=== PATIENT | female | born 1985 | race Caucasian/White ===

== ENCOUNTER 2020-01-08 13:33 | Outpatient (CLI) | payer OTHER, SELFPAY ==
--- NOTE | 2020-01-08 13:42 | US_ITS ---
WS: [id number] OB ultrasound, 01/08/2020 Clinical Data: DATING/SUPERVISION OF NORMAL Comparison: None. Findings: There is a single interuterine . heart rate is 189 beats per minute. There is a yolk sac present. The crown-rump length measured 2.92 cm. The estimated gestational age 9 weeks 5 days is with an ADDIE of approximately 08/07/2020. The left ovary measured 2.21 cm x 2.84 cm x 3.86 cm. The right ovary measured 2.27 cm x 3.36 cm. No ovarian cyst or masses are seen. US/US OB <= 14 weeks fetus [id number] Impression: 1. Single interuterine . 2. Estimated gestational age of 9 weeks 5 days with an ADDIE of 08/07/2020. 3. heart rate 189 beats per minute.
== END 2020-01-08 13:34 | disposition home or self-care (01) ==
LOC: US 13:39
PROVIDERS: Family Provider Family Medicine; PCP Family Medicine; Visit Provider Family Medicine
DX: Z34.81 Encounter for supervision of other normal pregnancy, first trimester (principal)
CPT/HCPCS: 76801

== ENCOUNTER 2020-03-14 10:12 | Outpatient (CLI) | payer OTHER, SELFPAY ==
--- NOTE | 2020-03-14 10:24 | US_ITS ---
WS: [id number] OBSTETRICAL ULTRASOUND COMPLETE HISTORY: ANATOMY COMPARISON: 01/08/2020 Single intrauterine gestation in Cephalic presentation. Cervix is Closed and normal length. Cervical length is 4.7 cm. Normal amount of amniotic fluid surrounds the fetus. Placenta: Anterior, no previa or abruption. Small cystic areas consistent with lakes along the subch orionic plate. Largest subchorionic plate cystic area measures 2.2 x 1.8 cm. Placenta grade 0 Heart: 164 BPM. Four chambers are identified. Anatomy: Intracranial structures and spine are normal. kidneys, stomach and urinary bladd er are unremarkable. Abdominal wall, three-vessel cord and cord insertion site are normal. 4 extremities are present. profile: Unremarkable. Gender: Male. measurements: BPD = 4.7 cm = 20w2d HC = 17.4 cm = 19w6d AC = 14.2 cm = 19w4d FL = 3.1 cm = 19w4d EFW: 302 g., Measurements are internally concordant. Appropriate growth since the first trimester ultrasound. AGA by ultrasound: 19w6d ADDIE by ultrasound: 08/02/2020 US/US OB >= 14 weeks fetus [id number] IMPRESSION: 1. Single intrauterine gestation of 19w6d with an ADDIE of 08/02/2020. 2. Unremarkable screening survey of anatomy. 3. Small subchorionic plate lakes. Suggest late second trimester or early thir d trimester reevaluation to be sure these are not significantly enlarged as thi s could place the fetus at risk for IUGR.
== END 2020-03-14 10:13 | disposition home or self-care (01) ==
LOC: RAD 10:15
PROVIDERS: PCP Family Medicine; Visit Provider Family Medicine
DX: Z36.89 Encounter for other specified antenatal screening (principal); Z3A.19 19 weeks gestation of pregnancy
CPT/HCPCS: 76805

== ENCOUNTER 2020-05-06 06:38 | Outpatient (CLI) | payer OTHER, SELFPAY ==
--- NOTE | 2020-05-06 | US_ITS ---
WS: [id number] ULTRASOUND OB FOCUSED HISTORY: PLACENTA LAKES COMPARISON: 03/14/2020 and 01/08/2020 Fetus in cephalic presentation. Cervix is closed at 3.3 cm. Normal amount of amniotic fluid. heart rate at 144 BPM. Placenta: Anterior with no previa or abruption. Again noted are the placental lakes in the chorionic plate. The largest Quintana measures 5.8 x 1.7 x 3.1 cm. There are additional smaller lakes scattered thr oughout. Placental lakes have slightly increased in size. Placenta is grade 2 otherwise. US/[place] [id number] IMPRESSION: 1. Subchorionic placental lakes of slightly increased in size since 03/14/2020. 2. Grade 2 placenta.
[2020-05-06 07:00] VITALS: BP 125/74; PULSE 84; RESP 18; TEMP 36.4; O2SAT 100; BMI 25.0
[2020-05-06 09:22] VITALS: BP 125/74; PULSE 84; RESP 18; TEMP 36.4; O2SAT 100
== END 2020-05-06 06:39 | disposition home or self-care (01) ==
PROVIDERS: PCP Family Medicine; Visit Provider Family Medicine
DX: O43.899 Other placental disorders, unspecified trimester (principal); Z3A.00 Weeks of gestation of pregnancy not specified
CPT/HCPCS: 36415; 76816; 86850; 86900; 90384; 96372

== ENCOUNTER 2020-08-07 02:00 | Inpatient (IN) | payer OTHER, SELFPAY ==
[2020-08-07] VITALS (30 sets, daily range): BP systolic 101–135; BP diastolic 62–81; PULSE 62–83; RESP 16–18; TEMP 36.4–37.9; O2SAT 95–100
[2020-08-07] MEDS: lactated ringers 1,000 ML 999 ML IV (02:30)
[2020-08-07 02:44] LABS: Basophils % 0.5 %; Eosinophils # 0.1 10^3/uL (0.0-0.8); Eosinophils % 0.9 %; Hematocrit 35.3 % (37.0-47.0); Lymphocytes # 2.9 10^3/uL (0.8-4.8); Lymphocytes % 32.5 %; Mean Corpuscular Hemoglobin 29.9 pg (28.0-34.0); Mean Platelet Volume 11.3 fL (7.4-10.4); Monocytes # 0.7 10^3/uL (0.2-0.9); Monocytes % 8.3 %; Neutrophils # 5.03 10^3/uL (1.8-7.7); Nucleated Red Blood Cells % 0 %; Platelet Count 172 10^3/cmm (130-400); Red Blood Count 4.01 10^6/uL (4.1-5.3); Red Cell Distribution Width 12.7 % (12.1-15.1); White Blood Count 8.8 10^3/uL (4.0-10.0)
[2020-08-07] MEDS: sodium chloride 0.9% 500 ML 999 ML IV (04:00)
[2020-08-07] MEDS: oxytocin 30 UNIT/500 ML BAG 600 UNIT IV (04:00)
--- NOTE | 2020-08-07 04:45 | P.HP_ITS ---
Providers/Chief Complaint Admitting Physician: Celestine Vigil MD Primary Care Provider: Celestine Vigil MD Chief Complaint: labor History of Present Illness Anita Perez is a 34 year old @ 40.0 weeks gestation by LMP consistent with 9 wk US. Her is complicated by history of abnormal pap smears, Rh negative, history of late hemorrhage/endometritis s/p transfusion of 2 units, placental lakes present, elevated 1-hr GTT with normal 3-hr GTT, GBS positive. The patient presented to labor and delivery shortly after 2 AM on 08/07/2020 after having significant contractions that woke her up out of her sleep. The patient was 4 cm upon arrival and shortly afterwards made rapid change to 8 cm dilation. Patient denies any fevers, cough, chest pains, shortness of breath, vaginal bleeding. Medications/Allergies Home Medications Medication Instructions Recorded Confirmed Last Taken Type 08/07/20 08/06/20 22:00 History Allergies Allergy/AdvReac Type Severity Reaction Status Date / Time No Known Allergies Allergy Verified 08/07/20 08:56 PFSH Acute PFSH: Medical History (Updated 08/08/20 @ 17:01 by Celestine Vigil MD) History of basal cell carcinoma History of blood transfusion Secondary hemorrhage Social History (Updated 08/08/20 @ 17:01 by Celestine Vigil MD) Smoking and tobacco status: never smoked Alcohol intake: never Substance/Drug Use: never Marital status: Physical Exam Narrative: EXAM NARRATIVE: General: Alert and oriented x3, in pain due to contractions Cardiac: Regular rate and rhythm without murmurs Lungs: Clear to auscultation bilaterally without wheezes, crackles or rhonchi Abdomen: Soft, non-tender, fundus consistent with gestational age Extremities: Trace edema in the bilateral lower extremities Data : 08/08/20 14:10 08/08/20 04:28 A&P Assessment and plan (1) Glucose tolerance test abnormal: Status: Acute (2) Positive GBS test: Status: Acute (3) Placenta, abnormal: Status: Acute (4) Rh negative status during : Status: Acute (5) Intrauterine : Status: Acute Additional A&P Information Anita Perez is a 34 year old @ 40.0 weeks gestation by LMP consistent with 9 wk US. Her is complicated by history of abnormal pap smears, Rh negative, history of late hemorrhage/endometritis s/p transfusion of 2 units, placental lakes present, elevated 1-hr GTT with normal 3-hr GTT, GBS positive. The patient is here and spontaneous labor. Upon arrival the patient was having significant contractions and was complete. Please see delivery note for full details and discussion. The patient did not have time to receive IV antibiotics for GBS prophylaxis due to her rapid delivery. Of note the patient had an elevated 1 hour glucose tolerance test with a normal 3-hour glucose tolerance test. Attestations Medical Necessity Statement*: The patient will be here for greater than 2 midnights due to intrapartum and management of labor and delivery. Coding Level of Care Code Acute Radio Message Router for [facility] Diagnoses Glucose tolerance test abnormal R73.09 Positive GBS test B95.1 Placenta, abnormal O43.109 Rh negative status during O26.899; Z67.91 Intrauterine Z34.90
--- NOTE | 2020-08-07 04:48 | PM.DELIVERY ---
Delivery Note: Date of delivery: August 07, 2020 Pre-delivery diagnoses: 1. Intrauterine at 40.0 weeks gestation 2. Rh- 3. History of late hemorrhage status post transfusion of 2 units of blood and early DIC 4. Placental lakes on ultrasound 5. Elevated 1 hour glucose tolerance test with normal 3-hour glucose tolerance test 6. GBS positive 7. Covid test negative on 07/28/2020 Post-delivery diagnoses: 1. Intrauterine status post spontaneous vaginal delivery at 40.0 weeks gestation 2. Rh- 3. History of late hemorrhage status post transfusion of 2 units of blood and early DIC 4. Placental lakes on ultrasound 5. Elevated 1 hour glucose tolerance test with normal 3-hour glucose tolerance test 6. GBS positive 7. Covid test negative on 07/28/2020 8. Delivery of healthy male weighing 8 pounds 7 ounces with Apgars of 8 and 9 9. 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 Status post attempted manual extraction of placenta 11. Status post emergent hysterectomy 12. hemorrhage Procedure: Spontaneous vaginal delivery Attempted manual extraction of placenta Emergent abdominal hysterectomy Op report anesthesia: General Delivering Physician: Celestine Vigil MD Estimated blood loss (mL): 2,000 Findings: 1. Delivery of healthy male with Apgars of 8 and 9 weighing 8 pounds 7 ounces 2. Retained placenta consistent with placenta accreta versus increta Pre-Delivery Course: The patient was scheduled for induction of labor at 6 AM on the morning of 08/07/2020. She presented to labor and delivery triage secondary to spontaneous labor on the morning of 08/07/2020 at approximately 2 AM. The patient's contractions had started approximately 1 hour before this. The patient made rapid change from 4cm to 8 cm in approximately 25 minutes. The patient was not able to have an epidural because of the rapid progression. She also did not receive IV antibiotics for GBS prophylaxis secondary to the rapid progression. The patient was noted to have an anterior lip at 2:41 AM on 08/07/2020. She was complete by my exam at 2:43 AM. Delivery: The patient began pushing at 2:43 AM. She pushed well and the delivered in the OA position at 3:00 AM on 08/07/2020. The right shoulder was the anterior shoulder and it delivered with downward pressure. The rest of the delivered without complication. There was no nuchal cord. The was crying immediately after delivery and the mouth and nose were bulb suctioned by myself. The infant was placed on the mother's chest where the nurses were waiting to care for him. The cord was clamped by myself after approximately 1 minute and cut by the 's father. Cord blood was obtained. The cord was then drained of blood and traction was placed on umbilical cord. The uterus was massaged. This was continued for the next 27 minutes. At 3:27 AM, a small portion of the placenta delivered attached to the umbilical cord. This constituted approximately 20% of the placenta. The patient then began to have significant bleeding. I spoke with the patient regarding the fact that she had a retained placenta and that we would need to attempt a manual extraction and that it would be better under general anesthesia due to her not having an epidural. I also discussed with her the possibility of a placenta accreta and the possible need for an emergent hysterectomy. We had discussed this previously as she had placental lakes on ultrasound and she had been sent to perinatology for further evaluation of this. They had stated that no further work-up needed to be done, but I did let her know that placenta accreta is not always seen on imaging. The patient agreed that if a hysterectomy was necessary that she was okay with this. Anesthesia and Dr. Hook were called emergently to assist due to these current and possible complications. The patient was taken back to the operating room emergently. On the way to the operating room she had significant bleeding in the bed that spilled over through the bed onto the floor. 2 units of crossmatched blood were ordered and 1 unit of emergent blood was ordered. 2 units of fresh frozen plasma were ordered and 1 unit of platelets as that was all that was available. 1L of warmed IV fluids were given while awaiting blood products. TXA was given. I again let the patient know that a hysterectomy would be possible and she again agreed to this procedure if necessary. Anesthesia was available right away and the patient was sedated. The patient was prepped and I attempted manual extraction of the placenta. A portion of the placenta was able to be from the left uterine wall, however I was not certain that it was appropriately and completely. There was also a very firm attachment to the fundus of the uterus that was approximately 3 to 4 cm in diameter. Even with significant steady pulling, it would not separate and with steady pressure would have led to an inverted uterus. Dr. Hook also attempted a manual extraction and had similar results. The patient continued to bleed heavily and for this reason it was decided that an emergent hysterectomy was necessary. The patient was given IV Pitocin until the hysterectomy could be completed. Please see Dr. Hook's note for further details of the surgery. I estimated that the patient lost approximately 1200 mL of blood prior to surgery. Dr. Hook documented 800 mL blood loss during the surgery. This would be a total estimation of approximately 2 L of blood loss. Post-Delivery Status: After delivery the patient was stable from a vital sign standpoint and ended up receiving 2 units of packed red blood cells and 1 unit of fresh frozen plasma. A DIC panel was done and showed signs of elevated D-dimer and borderline fibrinogen levels. Clinically the patient was continuing to improve well, so no further transfusions were given. The patient has been started on Zosyn for the next 24 hours to prevent any GI infection. This is due to the emergent need for hysterectomy and possible associated complications. Currently the patient is doing very well considering her acute blood loss. We will continue to watch her H&H and recheck a DIC panel to be sure that she is improving. We will provide pain control as needed. All questions from the patient and her were answered. Continue with close monitoring secondary to hemorrhage. A&P Assessment and plan (1) hemorrhage: Status: Acute (2) Retained placenta with hemorrhage: Status: Acute (3) S/P emergency hysterectomy: Status: Acute Coding Level of Care Code Acute Convertible Power Shovel Operator for [facility] Diagnoses hemorrhage O72.1 Retained placenta with hemorrhage O72.0 S/P emergency hysterectomy Z90.710
--- NOTE | 2020-08-07 05:50 | P.OP_ITS ---
Operative Report Date of procedure: August 07, 2020 Pre-op Diagnosis: hemorrhage, placenta accreta Post-op diagnosis: same Post-op Findings: prolapse uterus with placenta Procedure Done: Partial/Supracervical abdominal hysterectomy Specimens removed/disposition: uterus with placenta without cervix Pathology: uterus with placenta attached Surgeon: Andrew Hook M.D. Anesthesia: General Estimated blood loss (mL): 800 IV fluids (mL): 1,500 Urine output (mL): 100 Findings: enlarged uterus with placenta attached Condition: stable Disposition: observation Brief History: 33-year-old female status post spontaneous vaginal delivery. Called by primary provider after attempting to delivered the placenta for 28 minutes. Placenta cannot be detached from the uterus. Her main provider had taken the patient to the OR and under anesthesia attempted again to delivered the placenta but the placenta could not detached. I came to the OR room a try to remove the placenta the placenta will not shear off from the uterus. A placenta accreta was suspected. Counseled the patient's regarding the findings and the recommended hysterectomy to control the bleeding. The patient had been counseled by the primary provider of the possibility of a hysterectomy if the placenta would not be able to be delivered. Tranexamic and cytotec was ordered. Preoperative emergency blood transfusion given 2 units of PRBC, and 1 unit fresh frozen plasma. Procedure: After assuring informed consent, the patient was taken to the operating room and anesthesia was initiated. She was placed in the dorsal supine position with a left lateral tilt. The patient was given Ancef 2 gm intravenously immediately. The abdomen was prepped and draped in the usual virgilio rile manner. A time-out procedure was performed. A Pfannenstiel skin incision was made with the scalpel and carried through to the underlying layer of fascia with the Bovie. The fascia was nicked in the midline and the incision extended laterally with the Watts scissors. The superior aspect of the fascial incision was then grasped with Jacqueline clamps and elevated and the underlying rectus muscle dissected off bluntly and sharp with watts scissors. Attention was then turned to the inferior aspect of the incision which, in similar fashion, was grasped and tented up with Jacqueline clamps and the rectus muscle dissected bluntly. The rectus muscles were then in the midline and the peritoneum identified, tented up and entered sharply with Metzenbaum scissors. The peritoneal incision was then extended superiorly and inferiorly with good visualization of the bladder. The Omid O retractor was then inserted and the vesicouterine peritoneum identified, grasped with pickups and entered sharply with Metzenbaum scissors. The abdominal contents were packed superiorly away from the operative site using the lap packs. At this time, the pelvic organs were noted. This incision was then extended laterally and the bladder flap created digitally. The fundus of the uterus was then grasped with a wet lap towel and retracted out of the pelvic cavity into the abdominal site. At this point, Tram clamps were placed in both right and left adnexal regions. Subsequently, using the Voyant fusion device unit, the round ligaments were grasped, cauterized/sealed, and cut. Subsequently, the posterior leaf of the broad ligament was opened sharply and the Voyant fusion device unit was then placed below the level of the ovary in both the right and left side, care being taken not to damage bowel and the infundibulopelvic ligament was then grasped, cauterized/sealed, and cut. Further dissection of the broad ligament was carried down posteriorly towards the uterine vessels. The bladder was pushed inferiorly down towards the vagina. Subsequently, the uterine vessels were then grasped again with the Voyant fusion device, cauterized/seal, and cut. At these point the uterus was transected at the level oflower utrine segment performing a supracervical hysterectomy. The uterine stump incision was repaired with 0 Vicryl in a running-locked fashion. A second layer of the same suture was used to obtain excellent hemostasis. The gutters were cleared of all clots. After the good hemostasis had been achieved in the supracervical closure, both the right and left adnexa was visualized and no more bleeding was noted. The pelvis was copiously irrigated. The bladder was visualized and no bleeding was noted. The rectus muscles were approximated with 1-0 Vicryl. The fascia was reap proximated with 0 Vicryl in an midlocked running fashion. The skin was closed with Insorb?s subcuticular absorbable kerry. The patient tolerated the procedure well. The sponge, lap and needle counts were correct times three.
[2020-08-07] MEDS: morphine 4 mg/mL SDV 1 mL IVP ×3 (06:00→11:07)
[2020-08-07 06:09] LABS: Basophils # 0.1 10^3/uL (0.0-0.1); Basophils % 0.4 %; Eosinophils % 0.1 %; Hemoglobin 10.3 g/dL (11.5-15.3); Lymphocytes # 1.4 10^3/uL (0.8-4.8); Lymphocytes % 8.3 %; Mean Corpuscular HGB Conc 33.2 g/dL (30.0-36.0); Mean Corpuscular Hemoglobin 29.3 pg (28.0-34.0); Mean Corpuscular Volume 88.3 fL (81-99); Mean Platelet Volume 11.2 fL (7.4-10.4); Monocytes # 1.2 10^3/uL (0.2-0.9); Monocytes % 7.1 %; Neutrophils % 83.4 %; Nucleated Red Blood Cells % 0 %; Platelet Count 148 10^3/cmm (130-400); Red Blood Count 3.51 10^6/uL (4.1-5.3); Red Cell Distribution Width 13.7 % (12.1-15.1); White Blood Count 16.3 10^3/uL (4.0-10.0)
[2020-08-07] MEDS: ketorolac 30 mg/mL INJ IVP ×3 (07:30→22:20)
--- NOTE | 2020-08-07 09:17 | PC.NURSE ---
note This mom reports baby nursing well. She has no concerns. She nursed her now 22 month old for over a year.
[2020-08-07 09:23] LABS: Hemoglobin 9.6 g/dL (11.5-15.3)
[2020-08-07 09:27] LABS: INR 1.05 (0.8-1.2)
[2020-08-07 09:28] LABS: Fibrinogen 279 mg/dL (174-498); Partial Thromboplastin Time 29.4 SECONDS (23.9-36.7)
[2020-08-07 09:37] LABS: D Dimer 5.08 ug/mIFEU (0-0.59)
[2020-08-07] MEDS: dextrose 5%-lactated ringers 1,000 ML 125 ML IV (09:41)
[2020-08-07] MEDS: piperacillin-tazobactam 3.375 GM in sodium chloride 0.9% (plus) 50 ML IV ×2 (09:42→17:50)
[2020-08-07] MEDS: oxyCODONE-APAP 5-325 mg Tablet PO ×2 (14:14→20:36)
[2020-08-07 14:22] LABS: Hematocrit 26.8 % (37.0-47.0)
[2020-08-07] MEDS: lanolin oint 7 gm 1 APPLIC TOPICAL (15:50)
[2020-08-07 18:52] LABS: Hematocrit 26.1 % (37.0-47.0); Hemoglobin 8.9 g/dL (11.5-15.3); Mean Corpuscular HGB Conc 34.1 g/dL (30.0-36.0); Mean Corpuscular Hemoglobin 29.5 pg (28.0-34.0); Mean Corpuscular Volume 86.4 fL (81-99); Mean Platelet Volume 10.8 fL (7.4-10.4); Platelet Count 130 10^3/cmm (130-400); Red Blood Count 3.02 10^6/uL (4.1-5.3); Red Cell Distribution Width 14.7 % (12.1-15.1); White Blood Count 9.2 10^3/uL (4.0-10.0)
[2020-08-08] VITALS (9 sets, daily range): BP systolic 105–132; BP diastolic 66–90; PULSE 80–87; RESP 15–18; TEMP 36.7–36.8; O2SAT 96–98
[2020-08-08] MEDS: oxyCODONE-APAP 5-325 mg Tablet PO ×5 (01:27→20:07)
[2020-08-08] MEDS: piperacillin-tazobactam 3.375 GM in sodium chloride 0.9% (plus) 50 ML IV (01:29)
[2020-08-08 05:03] LABS: Basophils # 0.1 10^3/uL (0.0-0.1); Basophils % 0.6 %; Eosinophils # 0.1 10^3/uL (0.0-0.8); Eosinophils % 1.4 %; Hematocrit 24.1 % (37.0-47.0); Lymphocytes # 2.1 10^3/uL (0.8-4.8); Lymphocytes % 23.8 %; Mean Corpuscular HGB Conc 33.2 g/dL (30.0-36.0); Mean Corpuscular Hemoglobin 29.1 pg (28.0-34.0); Mean Corpuscular Volume 87.6 fL (81-99); Mean Platelet Volume 10.9 fL (7.4-10.4); Monocytes # 0.6 10^3/uL (0.2-0.9); Monocytes % 7.2 %; Neutrophils % 66.4 %; Nucleated Red Blood Cells % 0 %; Platelet Count 113 10^3/cmm (130-400); Red Blood Count 2.75 10^6/uL (4.1-5.3); White Blood Count 8.9 10^3/uL (4.0-10.0)
[2020-08-08 05:30] LABS: Alanine Aminotransferase 13 U/L (0-33); Albumin Level 2.7 g/dL (3.5-5.2); Alkaline Phosphatase 108 IU/L (35-105); Anion Gap 12.2 (5-19); Aspartate Amino Transferase 30 U/L (0-32); Blood Urea Nitrogen 10 mg/dL (6-20); Calcium 8.2 mg/dL (8.5-10.5); Carbon Dioxide 23 mmol/L (22-29); Chloride 105 mmol/L (98-107); Creatinine Clr Calc Pharmacy 0.2316; Glomerular Filtration Rate 72.1 mL/min (90-130); Glucose 88 mg/dL (65-115); Osmolality Calculated 280 mOsm/kg (285-295); Potassium 4.2 mmol/L (3.5-5.1); Sodium 136 mmol/L (136-145); Total Bilirubin 0.2 mg/dL (0.15-1.2); Total Protein 4.7 g/dL (6.6-8.7)
--- NOTE | 2020-08-08 08:29 | ANE.PACU2 ---
Inpatient post-anesthesia follow up: Airway intact: Yes Vital signs: Temperature 98.6 F Pulse Rate 80 Respiratory Rate 18 Blood Pressure 122/83 Pulse Oximetry 96 Oxygen Delivery Me thod Room Air Oxygen Flow Rate Fraction of Inspir ed Oxygen Hydration adequate: Yes Nausea and vomiting: No Pain level: 1 Mental status: Baseline
[2020-08-08] MEDS: docusate sodium 100 mg Capsule PO ×2 (08:30→17:42)
[2020-08-08] MEDS: ibuprofen 800 mg tablet PO ×3 (08:30→20:07)
[2020-08-08] MEDS: ferrous sulfate EC 325 mg Tablet PO ×2 (08:30→17:42)
[2020-08-08 14:43] LABS: Basophils # 0.1 10^3/uL (0.0-0.1); Basophils % 0.7 %; Eosinophils # 0.1 10^3/uL (0.0-0.8); Eosinophils % 1.2 %; Hematocrit 25.5 % (37.0-47.0); Hemoglobin 8.7 g/dL (11.5-15.3); Lymphocytes % 20.9 %; Mean Corpuscular HGB Conc 34.1 g/dL (30.0-36.0); Mean Corpuscular Hemoglobin 30.1 pg (28.0-34.0); Mean Corpuscular Volume 88.2 fL (81-99); Mean Platelet Volume 11.1 fL (7.4-10.4); Monocytes # 0.6 10^3/uL (0.2-0.9); Monocytes % 6.1 %; Neutrophils % 70.4 %; Nucleated Red Blood Cells % 0 %; Platelet Count 145 10^3/cmm (130-400); Red Blood Count 2.89 10^6/uL (4.1-5.3); Red Cell Distribution Width 14.9 % (12.1-15.1); White Blood Count 9.4 10^3/uL (4.0-10.0)
[2020-08-08 14:52] LABS: INR 0.98 (0.8-1.2)
[2020-08-08 14:53] LABS: Partial Thromboplastin Time 33.1 SECONDS (23.9-36.7)
[2020-08-08 14:54] LABS: Fibrinogen 330 mg/dL (174-498)
[2020-08-08 14:56] LABS: D Dimer 1.33 ug/mIFEU (0-0.59)
--- NOTE | 2020-08-08 17:47 | PM.PN ---
Subjective Subjective: Interval history: The patient is doing well today after having a spontaneous vaginal delivery followed by emergent hysterectomy secondary to placenta accreta versus increta leading to rapid hemorrhage. She is currently ambulating, voiding, passing gas and tolerating food by mouth. Her pain is well controlled. Vitals/I&O/Wt Last Vital Signs Temp 98.3 F 08/08/20 16:30 Pulse 87 08/08/20 16:30 Resp 18 08/08/20 16:45 BP 132/90 08/08/20 16:30 Pulse Ox 98 08/08/20 16:30 08/08/20 08/08/20 08/08/20 06:59 14:59 22:59 Intake Total 50 / 150 Balance 50 / -925 Weight last 48 hrs Weight 5.82 oz Physical Exam Narrative: EXAM NARRATIVE: General: Alert and oriented x3 Cardiac: Regular rate and rhythm without murmurs Lungs: Clear to auscultation bilaterally without wheezes, crackles or rhonchi Abdomen: Soft, mild tenderness over the incision. Incision is clean and dry without signs of infection or dehiscence Extremities: Trace edema in the bilateral lower extremities Urinary Catheter Management^: Simon: Cath Placed During This Visit: yes Urinary Catheter Date of Insertion: 08/07/20 Urinary Catheter Time of Insertion: 04:00 Data : 08/08/20 14:10 08/08/20 04:28 A&P Assessment and plan (1) hemorrhage: Status: Resolved (2) Retained placenta with hemorrhage: Status: Resolved (3) S/P emergency hysterectomy: Additional A&P Information Anita Perez is a 34 year old G2 now P2 status post spontaneous vaginal delivery @ 40.0 weeks gestation by LMP consistent with 9 wk US. Her is complicated by history of abnormal pap smears, Rh negative, history of late hemorrhage/endometritis s/p transfusion of 2 units, placental lakes present, elevated 1-hr GTT with normal 3-hr GTT, GBS positive, hemorrhage secondary to placenta accreta versus increta status post emergent hysterectomy. The patient seems to be doing well at this time. The patient received 2 units of packed red blood cells. Her blood count is 8.7. She received 2 units of packed red blood cells. We will recheck a DIC profile to be sure that it is improving as expected. Clinically she is doing very well. She is ambulating, voiding, passing gas and tolerating food by mouth. Her pain is well controlled. She has almost no bleeding. She seems to be doing okay overall regarding the need for emergent hysterectomy. All questions were answered. Plan for discharge home tomorrow as long as she continues to do well. Attestations Medical Necessity Statement*: The patient continues need inpatient care as we monitor her after hemorrhage with emergent hysterectomy. Her stay will cross 2 midnights. Coding Level of Care Code Acute Therapeutic Specialist for [facility] Diagnoses hemorrhage O72.1 Retained placenta with hemorrhage O72.0 S/P emergency hysterectomy Z90.710
[2020-08-09 02:59] VITALS: RESP 17
[2020-08-09] MEDS: oxyCODONE-APAP 5-325 mg Tablet PO ×2 (02:59→08:28)
[2020-08-09 03:56] VITALS: BP 118/69; PULSE 88; RESP 16; TEMP 36.8; O2SAT 95
[2020-08-09] MEDS: ibuprofen 800 mg tablet PO (08:27)
[2020-08-09 08:28] VITALS: RESP 18
[2020-08-09] MEDS: ferrous sulfate EC 325 mg Tablet PO (08:28)
[2020-08-09] MEDS: docusate sodium 100 mg Capsule PO (08:29)
[2020-08-09] MEDS: prenatal vitamin Capsule 1 CAP PO (08:29)
--- NOTE | 2020-08-09 11:23 | PM.DCS ---
Discharge Providers Date of Admission: 08/07/20 02:00 Date of Discharge: August 09, 2020 Attending Provider at Admission: Celestine Vigil MD Attending Provider at Discharge: Celestine Vigil MD Primary Care Provider: Celestine Vigil MD Diagnoses at Discharge Discharge Diagnosis (1) hemorrhage: Status: Resolved (2) Retained placenta with hemorrhage: Status: Resolved (3) S/P emergency hysterectomy: Other Information Additional DC diagnoses/information: 1. Intrauterine status post spontaneous vaginal delivery at 40.0 weeks gestation 2. Rh- 3. History of late hemorrhage status post transfusion of 2 units of blood and early DIC 4. Placental lakes on ultrasound 5. Elevated 1 hour glucose tolerance test with normal 3-hour glucose tolerance test 6. GBS positive 7. Covid test negative on 07/28/2020 8. Delivery of healthy male weighing 8 pounds 7 ounces with Apgars of 8 and 9 9. 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 Status post attempted manual extraction of placenta 11. Status post emergent hysterectomy 12. hemorrhage Procedure: Spontaneous vaginal delivery Reason for Visit Reason for Visit: labor Hospital Course Hospital Course: The patient was scheduled for induction of labor at 6 AM on the morning of 08/07/2020. She presented to labor and delivery triage secondary to spontaneous labor on the morning of 08/07/2020 at approximately 2 AM. The patient's contractions had started approximately 1 hour before this. The patient made rapid change from 4cm to 8 cm in approximately 25 minutes. The patient was not able to have an epidural because of the rapid progression. She also did not receive IV antibiotics for GBS prophylaxis secondary to the rapid progression. The patient was noted to have an anterior lip at 2:41 AM on 08/07/2020. She was complete by my exam at 2:43 AM. Delivery: The patient began pushing at 2:43 AM. She pushed well and the delivered in the OA position at 3:00 AM on 08/07/2020. The right shoulder was the anterior shoulder and it delivered with downward pressure. The rest of the infant delivered without complication. There was no nuchal cord. The was crying immediately after delivery and the mouth and nose were bulb suctioned by myself. The was placed on the mother's chest where the nurses were waiting to care for him. The cord was clamped by myself after approximately 1 minute and cut by the 's father. Cord blood was obtained. The cord was then drained of blood and traction was placed on umbilical cord. The uterus was massaged. This was continued for the next 27 minutes. At 3:27 AM, a small portion of the placenta delivered attached to the umbilical cord. This constituted approximately 20% of the placenta. The patient then began to have significant bleeding. I spoke with the patient regarding the fact that she had a retained placenta and that we would need to attempt a manual extraction and that it would be better under general anesthesia due to her not having an epidural. I also discussed with her the possibility of a placenta accreta and the possible need for an emergent hysterectomy. We had discussed this previously as she had placental lakes on ultrasound and she had been sent to perinatology for further evaluation of this. They had stated that no further work-up needed to be done, but I did let her know that placenta accreta is not always seen on imaging. The patient agreed that if a hysterectomy was necessary that she was okay with this. Anesthesia and Dr. Hook were called emergently to assist due to these current and possible complications. The patient was taken back to the operating room emergently. On the way to the operating room she had significant bleeding in the bed that spilled over through the bed onto the floor. 2 units of crossmatched blood were ordered and 1 unit of emergent blood was ordered. 2 units of fresh frozen plasma were ordered and 1 unit of platelets as that was all that was available. 1L of warmed IV fluids were given while awaiting blood products. TXA was given. I again let the patient know that a hysterectomy would be possible and she again agreed to this procedure if necessary. Anesthesia was available right away and the patient was sedated. The patient was prepped and I attempted manual extraction of the placenta. A portion of the placenta was able to be from the left uterine wall, however I was not certain that it was appropriately and completely. There was also a very firm attachment to the fundus of the uterus that was approximately 3 to 4 cm in diameter. Even with significant steady pulling, it would not separate and with steady pressure would have led to an inverted uterus. Dr. Hook also attempted a manual extraction and had similar results. The patient continued to bleed heavily and for this reason it was decided that an emergent hysterectomy was necessary. The patient was given IV Pitocin until the hysterectomy could be completed. Please see Dr. Hook's note for further details of the surgery. I estimated that the patient lost approximately 1200 mL of blood prior to surgery. Dr. Hook documented 800 mL blood loss during the surgery. This would be a total estimation of approximately 2 L of blood loss. Post-Delivery Status: After delivery the patient was stable from a vital signs standpoint and ended up receiving 2 units of packed red blood cells and 1 unit of fresh frozen plasma. A DIC panel was done and showed signs of elevated D-dimer and borderline fibrinogen levels. Clinically the patient was continuing to improve well, so no further transfusions were given. The patient was started on Zosyn for the next 24 hours to prevent any GI infection. This is due to the emergent need for hysterectomy and possible associated complications. Currently the patient is doing very well considering her acute blood loss. Her repeat DIC panel showed signs of significant improvement. The patient's hemoglobin is showing signs of improvement as well. The patient is now ambulating, voiding, passing gas and tolerating food by mouth. She has almost no bleeding at this time. Her incision is clean and dry without signs of infection or dehiscence. Precautions were given regarding care for her incision site as well as instructions. All questions were answered. The patient is in agreement with the current plan of care. We will follow-up on the results of pathology to further diagnose the placental pathology. Physical Exam Narrative: EXAM NARRATIVE: General: Alert and oriented x3 Cardiac: Regular rate and rhythm without murmurs Lungs: Clear to auscultation bilaterally without wheezes, crackles or rhonchi Abdomen: Soft, mild tenderness over the incision. Incision is clean and dry without signs of infection or dehiscence Extremities: Trace edema in the bilateral lower extremities Urinary Catheter Management^: Simon: Cath Placed During This Visit: yes Urinary Catheter Date of Insertion: 08/07/20 Urinary Catheter Time of Insertion: 04:00 Discharge Data Data Completed and Pending: Pending at discharge Category Date Time Status ABO/Rh Type Stat Lab 08/07/20 02:15 Results Complete Crossmat ch Stat Lab 08/07/20 02:15 Results FFP [Frozen Plasm a FZ <24 1st Cont] Routine Lab 08/07/20 04:23 Ordered Frozen Plasma FZ <24 1st Cont Stat Lab 08/07/20 02:15 Results Leukocyte Reduced RBC Stat Lab 08/07/20 02:15 Results Platelets Leuko-R educed Stat Lab 08/07/20 02:15 Results Rho D Immune Glob ulin Stat Lab 08/07/20 02:15 Results Type and Screen S tat Lab 08/07/20 02:15 Results Pathology: Surgic al [PTH] Routine Pth 08/07/20 12:16 Received Labs from last 24 hours 08/08/20 08/08/20 08/07/20 14:10 14:10 02:15 WBC 9.4 RBC 2.89 L Hgb 8.7 L Hct 25.5 L MCV 88.2 MCH 30.1 MCHC 34.1 RDW 14.9 Plt Count 145 MPV 11.1 H Neut % (Auto) 70.4 Lymph % (Auto) 20.9 Meagher % (Auto) 6.1 Eos % (Auto) 1.2 Baso % (Auto) 0.7 Neut # (Auto) 6.60 Lymph # (Auto) 2.0 Meagher # (Auto) 0.6 Eos # (Auto) 0.1 Baso # (Auto) 0.1 Nucleated RBC % (a uto) 0 Nucleated RBCs # 0.0 PT 13.30 INR 0.98 APTT 33.1 Fibrinogen 330 Fibrin Degrad Prod ucts Neg, <10 D-Dimer 1.33 H Blood Type A Negative Rho(D) Type Negative Antibody Screen Negative Crossmatch See Detail Vitals: Last Vital Signs Temp 98.3 F 08/09/20 03:56 Pulse 88 08/09/20 03:56 Resp 18 08/09/20 08:28 BP 118/69 08/09/20 03:56 Pulse Ox 95 08/09/20 03:56 Discharge Plan Discharge Patient Disposition: Home Condition: Good Prescriptions: New ibuprofen 800 mg Tablet 800 mg PO TID Qty: 60 RF: 0 oxycodone-acetaminophen 5-325 mg Tablet 1 - 2 tab PO Q4H PRN (Reason: Moderate To Severe Pain) Qty: 30 RF: 0 senna 8.6 mg tablet 8.6 mg PO Q6H PRN (Reason: constipation) Qty: 30 RF: 0 Continued RF: 0 Discharge Orders: Discharge Order (Routine); Ordered 08/09/20 Ordered By: Celestine Vigil Referrals: Andrew Hook MD [Physician] - 2 weeks Celestine Vigil MD [Primary Care Provider] - 4-7 days Discharge Diet: Regular Discharge Activity: Limit activity as instructed Patient Instructions: Vitamins (By mouth), Vaginal Delivery (DC), OB Abdominal Surgery - [facility], OB Discharge Report, OB Food/Drug Interaction Guide, OB Vaginal Deliveries Activity Restrictions/Additional Instructions: Do not lift anything heavier than your infant in the car seat for the first 3 weeks, then gradually increase over the next 3 weeks. Nothing per vagina for 6 weeks. If you have any concern that your incision is becoming infected, please call Dr. Vigil or Dr. Hook's office for a sooner appointment. Discharge Date/Time: 08/09/20 12:25 Discharge Attestations Time Spent in Discharge Care*: greater than 30 min Quality Metrics Clinical Quality Measures During this hospital stay, did patient experience: None Coding Level of Care Code Acute Slot Service Specialist for [facility] Fwd Diagnoses hemorrhage O72.1 Retained placenta with hemorrhage O72.0 S/P emergency hysterectomy Z90.710
[2020-08-09 12:00] VITALS: BP 136/81; PULSE 91; RESP 17; TEMP 36.8
--- NOTE | 2020-08-18 09:38 | PM.PN ---
Subjective Subjective: Interval history: 33-year-old female is status post spontaneous vaginal delivery complicated with hemorrhage. Emergency partial hysterectomy performed for suspected placenta accreta/increta. Denies significant pain refers pain under control. Vitals/I&O/Wt Last Vital Signs Temp 98.2 F 08/09/20 12:00 Pulse 91 08/09/20 12:00 Resp 17 08/09/20 12:00 BP 136/81 08/09/20 12:00 Pulse Ox 95 08/09/20 03:56 Physical Exam Narrative: EXAM NARRATIVE: GA: Alert and oriented ?3. HEENT: WNL. Heart: Regular rate and rhythm. Lungs: Clear to auscultation bilaterally. Abdomen: Bowel sounds present, nontender, minimal tenderness, incision clean and dry, no redness, pain or edema. SENIOR SOUS CHEF: Normal lochia. Extremities: No edema, no cyanosis, no calves pain. Urinary Catheter Management^: Simon: Cath Placed During This Visit: yes Urinary Catheter Date of Insertion: 08/07/20 Urinary Catheter Time of Insertion: 04:00 Data : 08/08/20 14:10 08/08/20 04:28 A&P Assessment and plan (1) Term delivered: Status post partial hysterectomy and blood transfusion day 1. She is afebrile and hemodynamically stable. Tolerating diet well. Ambulating without difficulty. Pain under control with medication. Pathology report pending. Status: Acute Attestations Medical Necessity Statement*: In my professional opinion per admitting diagnosis. Coding Level of Care Code Acute Subscription Crew Leader for [facility] Fwd Diagnoses Term delivered O80
== END 2020-08-09 12:25 | disposition home or self-care (01) | DRG 768 ==
PROVIDERS: Obstetrics & Gynecology; Admitting Provider Family Medicine; PCP Family Medicine; Visit Provider Family Medicine
PROC: 0UT90ZZ Resection of Uterus, Open Approach (ICD-10-PCS; CPT 59525; principal; 2020-08-07 03:30)
DX: O99.824 Streptococcus B carrier state complicating childbirth (principal); Z37.0 Single live birth; O36.0930 Maternal care for other rhesus isoimmunization, third trimester, not applicable or unspecified; O99.814 Abnormal glucose complicating childbirth; O34.83 Maternal care for other abnormalities of pelvic organs, third trimester; O72.0 Third-stage hemorrhage; O43.213 Placenta accreta, third trimester; O34.523 Maternal care for prolapse of gravid uterus, third trimester; Z3A.40 40 weeks gestation of pregnancy
CPT/HCPCS: 12345; 36415; 51702; 59025; 59409; 80053; 85014; 85018; 85025; 85027; 85362; 85378; 85384; 85460; 85610; 85730; 86850; 86900; 86920; 86927; 88307; 96375; 98960; 99211; J0330; J1885; J2250; J2270; J2405; J2543; J2704; J2710; J3010; J3490; J7040; P9016; P9017